=== PATIENT | male | born 1980 | race Caucasian/White ===

== ENCOUNTER 2017-07-26 10:39 | Emergency (ER) | payer MEDICAID ==
[~2017-07-26] VITALS: Ht 172.7 cm; Wt 97.6 kg
[~2017-07-26 10:39] MED LIST: DENIES
[2017-07-26 10:43] VITALS: Ht 172.7 cm; Wt 97.6 kg
--- NOTE | 2017-07-26 12:17 | ERD ---
ER Documentation Chief Complaint Chief Complaint right great to pain x 4 days HPI This is a 36-year-old male presents the emergency department today complaining of right toe pain after dropping a heavy shampoo bottle on it 4 days ago. States he has taken 2 ibuprofen this morning. States he is able to ambulate but has pain. States that he has used BenGay cream on it. Denies any fevers or chills. ROS All systems reviewed and are negative except as per history of present illness. Medications Home Meds Active Scripts Acetaminophen* (Tylophen*) 500 Mg Capsule, 1 CAP PO Q6H Y for PAIN AND OR ELEVATED TEMP, #30 CAP Prov:DARIN MENDOZA PA-C 07/26/17 Cephalexin* (Keflex*) 500 Mg Capsule, 500 MG PO QID for 7 Days, CAP Prov:DARIN MENDOZA PA-C 07/26/17 Ibuprofen* (Motrin*) 600 Mg Tab, 600 MG PO Q6, #30 TAB Prov:DARIN MENDOZA PA-C 07/26/17 Reported Medications [Denies] No Conflict Check 09/21/10 Allergies Allergies: Coded Allergies: No Known Drug Allergies (Verified Allergy, Mild, 09/21/10) PMhx/Soc History of Surgery: No Anesthesia Reaction: No Hx Neurological Disorder: No Hx Respiratory Disorders: No Hx Cardiac Disorders: No Hx Psychiatric Problems: No Hx Miscellaneous Medical Probl: No Hx Alcohol Use: Yes Hx Substance Use: No Hx Tobacco Use: No Smoking Status: Never smoker Physical Exam Vitals Vital Signs Date Time Temp Pulse Resp B/P Pulse Ox O2 Delivery O2 Flow Rate FiO2 07/26/17 10:43 98.2 72 18 116/69 97 Physical Exam Const: NAD Head: Atraumatic Eyes: Normal Conjunctiva ENT: Normal External Ears, Nose and Mouth. Neck: Full range of motion..~ No meningismus. Resp: Clear to auscultation bilaterally Cardio: Regular rate and rhythm, no murmurs Skin: No petechiae or rashes MSk: Right great toe with hallux valgus and bunion with evidence of mild erythema, tenderness to palpation over MTP joint localized swelling. Pulses 2+ . Distal neurovascularly intact Neur: Awake and alert Psych: Normal Mood and Affect Results 24 hrs DIAGNOSTIC IMAGING REPORT Patient: JULIETH BOSS : 1980 Age: 36 Sex: M MR #: [id number] DOS: 07/26/17 0000 Ordering MD: DARIN MENDOZA PA-C Location: [facility] [place] Room/Bed: PROCEDURE: XR Great Toe. CLINICAL INDICATION: Trauma. Pain. TECHNIQUE: Two views of the right great toe are available for review COMPARISON: No prior studies are available for comparison. FINDINGS: There is mild hallux valgus and osteoarthritic changes of the first metatarsal phalangeal joint. There is a small round periarticular soft tissue calcification. No acute fracture, dislocation osteolytic lesion is identified. Soft tissues are within normal limits. IMPRESSION: 1. 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 2. No acute fracture or dislocation. RPTAT: QQ .Loyd Owen MD, MD Date Time Electronically viewed and signed by .Loyd Owen MD, MD on 07/26/2017 13:07 .L/ CC: DARIN MENDOZA PA-C Procedures/MDM This a 36-year-old male presents the emergency department today complaining of right great toe pain after dropping a heavy shampoo bottle on it 4 days ago. Patient does have hallux valgus and a bunion he did have tenderness to palpation over his first MTP joint and therefore did obtain images. Per the radiology report there is mild hallux valgus and osteoarthritic changes of the first MTP joint. There is a small round periarticular soft tissue calcification. There is no acute fracture dislocation osteolytic lesion. Soft tissues are within normal limits. Patient has no fracture dislocation. There was some localized erythema and I will give the patient a prescription for Keflex to treat possible early cellulitis. Patient is afebrile and otherwise well-appearing have low suspicion for sepsis or deep space tracking infection. I have lower suspicion for gout given that patient reported a trauma. Patient was given a prescription for ibuprofen, Tylenol and Keflex. He was instructed to return for any worsening of symptoms, fevers or increased redness. Redness may also be due to the fact that the patient put on BenGay and caused a localized skin irritation Patient symptoms at this time is consistent with toe contusion and possible early cellulitis. Patient had taken 2 ibuprofen 2 hours prior to coming to the emergency room. He is driving himself and his 2 children I do not feel he would benefit from narcotics at this time. Patients declined crutches to help ambulate. Discussed the patient with Dr. Wilson and he is in agreement with the plan Departure Diagnosis: Primary Impression: Injury of toe Encounter type: initial encounter Laterality: right Qualified Code: S99.921A - Injury of toe on right foot, initial encounter Condition: Fair DARIN MENDOZA PA-C Jul 26, 2017 12:16
--- NOTE | 2017-07-26 13:07 | RADRPT ---
PROCEDURE: XR Great Toe. CLINICAL INDICATION: Trauma. Pain. TECHNIQUE: Two views of the right great toe are available for review COMPARISON: No prior studies are available for comparison. FINDINGS: There is mild hallux valgus and osteoarthritic changes of the first metatarsal phalangeal joint. The re is a small round periarticular soft tissue calcification. No acute fracture, dislocation osteolyt ic lesion is identified. Soft tissues are within normal limits. IMPRESSION: 1. 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 2. No acute fracture or dislocation. RPTAT: QQ .Loyd Owen MD, MD Date Time Electronically viewed and signed by .Loyd Owen MD, MD on 07/26/2017 13:07 .L/
[2017-07-26] MEDS ORDERED: CEPH-443 PO (13:45)
[2017-07-26] MEDS ORDERED: IBUP-1542 PO (13:45)
[2017-07-26] MEDS ORDERED: ACET500C5 PO (13:46)
== END 2017-07-26 15:44 | disposition home or self-care (01) ==
LOC: FTE 10:39
DX: S99.921A Unspecified injury of right foot, initial encounter (principal); W20.8XXA Other cause of strike by thrown, projected or falling object, initial encounter; Y92.9 Unspecified place or not applicable
CPT/HCPCS: 73660; Z7502